=== PATIENT | male | born 1990 | race Asian ===

== ENCOUNTER 2023-05-04 12:51 | Emergency (ER) | payer OTHER ==
[~2023-05-04] VITALS: Ht 172.7 cm; Wt 89.0 kg
[2023-05-04 14:31] VITALS: BP 144/91; TEMP 97.6; O2SAT 96
[2023-05-04] MEDS ORDERED: IBUP-1022 PO (14:42)
[2023-05-04] MEDS ORDERED: METH-1164 PO (14:42)
[2023-05-04] MEDS: methocarbamoL 500 MG TAB PO ONE (14:50)
[2023-05-04] MEDS: IBUPROFEN 600MG TAB PO ONE (14:50)
== END 2023-05-04 14:53 | disposition home or self-care (01) ==
LOC: M ED 12:51
DX: S43.401A Unspecified sprain of right shoulder joint, initial encounter (principal); X50.0XXA Overexertion from strenuous movement or load, initial encounter; Y92.89 Other specified places as the place of occurrence of the external cause; Y93.89 Activity, other specified; Y99.0 Civilian activity done for income or pay